=== PATIENT | male | born 1970 | race Caucasian/White ===

== ENCOUNTER 2023-09-07 09:12 | Outpatient (CLI) | payer OTHER, SELFPAY | END 2023-09-07 09:13 | disposition home or self-care (01) | PROVIDERS: PCP Family Medicine; Visit Provider Family Medicine | DX: R53.83 Other fatigue (principal); R68.82 Decreased libido; Z13.220 Encounter for screening for lipoid disorders | CPT/HCPCS: 80053; 80061; 84270; 84402; 84403; G0103 ==

== ENCOUNTER 2025-02-03 08:47 | Outpatient (CLI) | payer OTHER, SELFPAY | END 2025-02-03 08:48 | disposition home or self-care (01) | LOC: NFLDREF 02-05 17:44 | PROVIDERS: PCP Family Medicine; Referring Provider Family Medicine; Visit Provider Family Medicine | DX: Z00.00 Encounter for general adult medical examination without abnormal findings (principal); N40.0 Benign prostatic hyperplasia without lower urinary tract symptoms; R53.83 Other fatigue; R68.82 Decreased libido; Z12.5 Encounter for screening for malignant neoplasm of prostate | CPT/HCPCS: 80053; 80061; 84270; 84402; 84403; G0103 ==

== ENCOUNTER 2025-03-25 07:39 | Outpatient (CLI) | payer OTHER, SELFPAY ==
--- NOTE | 2025-03-25 08:00 | CRLHL7_ITS ---
For Patients: As a result of the Century Cures Act, medical imaging exams and procedure reports are released immediately into your electronic medical record. You may view this report before your referring provider. If you have questions, please contact your health care provider. Indication: Pulmonary nodules Technique: Noncontrast CT chest Please note that all CT scans at this facility use dose modulation, iterative reconstruction, and/or weight-based dosing when appropriate to reduce radiation dose to as low as reasonably achievable. Comparison: Cardiac study 03/06/2025 Findings: The visualized thyroid is within normal limits. No mediastinal, hilar or axillary adenopathy. No pleural or pericardial effusion. The upper abdomen is unremarkable. Calcified granuloma is present within the right upper lobe. Nodules within the right middle lobe are present measuring up to 6.5 millimeters. Nodule within the posterior right upper lobe measures 5.2 millimeters. Calcified nodule in the medial aspect of the left upper lobe noted. Noncalcified nodule in the left lower lobe adjacent to the hemidiaphragm measures 6.4 millimeters. Calcified nodules also within the left lower lobe. No fracture. Impression: Bilateral calcified and noncalcified pulmonary nodules. The largest noncalcified nodule measures 6.5 millimeters. One year follow-up chest CT recommended. Please note that all CT scans at this facility use dose modulation, iterative reconstruction, and/or weight-based dosing when appropriate to reduce radiation dose to as low as reasonably achievable. Dictated by Sohail Geller MD @ 03/26/2025 3:52:14 PM (Electronically Signed)
== END 2025-03-25 07:40 | disposition home or self-care (01) ==
LOC: CT 07:41
PROVIDERS: PCP Family Medicine; Visit Provider Family Medicine
DX: R91.8 Other nonspecific abnormal finding of lung field (principal)
CPT/HCPCS: 71250